=== PATIENT | male | born 1955 | race Caucasian/White ===

== ENCOUNTER 2019-05-27 00:47 | Outpatient (CLI) | payer OTHER, SELFPAY ==
--- NOTE | 2019-05-27 08:10 | DI.RAD_ITS ---
SYMPTOMS/DIAGNOSIS: RT ANKLE PAIN, M25.571, H/O SURGERY 20 YRS AGO RIGHT ANKLE: Three views. There appears to be a lucency in the subchondral region of the lateral aspect of the talar dome. Minimal sclerosis is noted. The ankle joint is otherwise well maintained with minimal spurring seen anteriorly. This may can be associated with anterior impingement. No acute fracture or dislocation is seen. The soft tissues are unremarkable. IMPRESSION: 1. Lucency seen in the lateral aspect of the talar dome. This may represent an osteochondral defect. Other causes of a benign lytic lesion can not be excluded. MRI or CT of the talus should be considered for further evaluation. 2. Mild spurring at the anterior aspect of the distal tibia. This may lead to anterior impingement syndrome.
== END 2019-05-27 01:07 ==
PROVIDERS: PCP Specialist/Technologist Athletic Trainer; Visit Provider Specialist/Technologist Athletic Trainer
DX: M25.571 Pain in right ankle and joints of right foot (principal); M95.8 Other specified acquired deformities of musculoskeletal system; Z98.890 Other specified postprocedural states
CPT/HCPCS: 73610